=== PATIENT | female | born 1950 | race Caucasian/White ===

== ENCOUNTER 2017-01-21 16:07 | Day surgery (SDC) | payer OTHER, BC ==
[~2017-01-21] VITALS: Ht 160 cm; Wt 73.9 kg
[2017-01-21 10:25] VITALS: BP 169/74
[~2017-01-21 16:07] MED LIST: AMBIEN5 MG PO; APRESOLINE50 MG PO; CLONIDINE HCL0.2 MG PO; DIABETA1.25 MG PO; NORVASC5 MG PO; SYNTHROID25 MCG PO
[2017-01-21 16:48] LABS: BASOPHIL COUNT 0.1 K/uL (0-0.1); EOSINOPHIL (%) 0.6 % (0-5); EOSINOPHIL COUNT 0.1 K/uL (0-0.3); IMMATURE GRANULOCYTE (%) 1.5 % (0.0-0.7); IMMATURE GRANULOCYTE COUNT 0.2 K/uL; INSTRUMENT ABS NEUTROPHIL CT 9.2 K/uL; LYMPHOCYTE COUNT 1.7 K/uL (1.0-2.8); MCH 30.7 PG (29.0-34.0); MCHC 32.3 G/DL (30.0-36.0); MCV 95.1 FL (83-99); MONOCYTE (%) 9.7 % (3-12); MONOCYTE COUNT 1.2 K/uL (0-0.8); NEUTROPHIL (%) 74.1 % (45-76); NEUTROPHIL COUNT 9.2 K/uL (1.8-6.4); PLATELET COUNT 289 K/uL (156-360); RBC DIS.WIDTH-CV 12.9 % (11.8-14.6); RBC DIS.WIDTH-SD 44.5 % (39-53); WHITE BLOOD COUNT 12.5 K/uL (4.1-10.2)
[2017-01-21] MEDS ORDERED: TYLENOL ARTHRI650 MG PO (16:51)
[2017-01-21] MEDS ORDERED: CLARITIN,ALAVAR10 MG PO (16:55)
[2017-01-21 17:00] VITALS: BP 183/75
[2017-01-21 17:04] LABS: ANION GAP 16 MEQ/L (2-14); CHLORIDE 93 MEQ/L (99-109); POTASSIUM 4.6 MEQ/L (3.7-5.4); SAMPLE HEMOLYSIS CHECK 0; SAMPLE ICTERIC CHECK 0; SAMPLE LIPEMIA CHECK 0; SODIUM 128 MEQ/L (136-147)
[2017-01-21] MEDS ORDERED: RENVELA800 MG PO (17:09)
[2017-01-21 17:10] LABS: GFR ESTIMATE (CALCULATED) 10 mL/min/; GLUCOSE 142 mg/dL (70-99); UREA NITROGEN (BUN) 91 mg/dL (9-23)
[2017-01-21] MEDS ORDERED: LORTAB 5-325 M1 EACH PO (17:11)
[2017-01-21 19:07] VITALS: BP 169/91
[2017-01-21 21:51] LABS: POINT-OF-CARE METER ID UU13113675
[2017-01-22 04:05] VITALS: BP 144/66
[2017-01-22 08:00] VITALS: BP 140/63
== END 2017-01-22 13:10 | disposition home or self-care (01) ==
LOC: SDC 16:07 → 2SOUTH 20:54 → 2EAST 21:58
PROVIDERS: Surgery
DX: T82.868A Thrombosis due to vascular prosthetic devices, implants and grafts, initial encounter (principal); T82.858A Stenosis of other vascular prosthetic devices, implants and grafts, initial encounter; Y83.2 Surgical operation with anastomosis, bypass or graft as the cause of abnormal reaction of the patient, or of later complication, without mention of misadventure at the time of the procedure; I12.0 Hypertensive chronic kidney disease with stage 5 chronic kidney disease or end stage renal disease; N18.6 End stage renal disease; E11.22 Type 2 diabetes mellitus with diabetic chronic kidney disease; Z99.2 Dependence on renal dialysis; E03.9 Hypothyroidism, unspecified; Z79.84 Long term (current) use of oral hypoglycemic drugs; Z91.041 Radiographic dye allergy status; Z88.0 Allergy status to penicillin; Z88.8 Allergy status to other drugs, medicaments and biological substances
CPT/HCPCS: 80048; 82948; 85014; 85018; 85025; 93005; C1757; C1769; C1894; C2628; G0378; J0690; J1644; J3010

== ENCOUNTER 2017-08-07 07:35 | Day surgery (SDC) | payer OTHER, BC ==
[~2017-08-07] VITALS: Ht 160 cm; Wt 72.0 kg
[~2017-08-07 07:35] MED LIST changes: +AMARYL1 MG PO; +ASPIR 8181 M1 PO; +CLARITIN,ALAVAR10 MG PO; +COLACE100 MG PO; +COQ-10100 MG PO; +HYALURONIC ACI1 EACH PO; +LEVO-T75 MCG PO; +LORTAB 5-325 M1 EACH PO; +MELATIN3 MG PO; +NEPHRO-VITE,1 TABLET PO; +NORCO 10/3251 TABLET PO; +RENVELA800 MG PO; +TYLENOL ARTHRI650 MG PO; +VITAMIN D35000 UNIT PO
[2017-08-07 08:28] LABS: HEMATOCRIT 27.3 % (36.0-46.0); MCH 31.2 PG (29.0-34.0); MCHC 32.6 G/DL (30.0-36.0); MCV 95.8 FL (83-99); MEAN PLAT.VOLUME 9.5 uM^3 (9.5-12.4); PLATELET COUNT 195 K/uL (156-360); RBC DIS.WIDTH-CV 14.3 % (11.8-14.6); RBC DIS.WIDTH-SD 50.2 % (39-53); RED BLOOD COUNT 2.85 M/uL (3.80-5.20); WHITE BLOOD COUNT 6.3 K/uL (4.1-10.2)
[2017-08-07] MEDS ORDERED: ALPHA LIPOIC A200 M1 PO (08:30)
[2017-08-07] MEDS ORDERED: ASTAXANTHIN4 MG PO (08:31)
[2017-08-07] MEDS ORDERED: ACETYL L-CARNI500 MG PO (08:31)
[2017-08-07] MEDS ORDERED: BALANCE B-1001 EAC1 PO (08:32)
[2017-08-07] MEDS ORDERED: TUMERIC (08:34)
[2017-08-07] MEDS ORDERED: COD LIVER OIL (08:34)
[2017-08-07] MEDS ORDERED: FLAX SEED OIL1 EACH PO (08:34)
[2017-08-07] MEDS ORDERED: ASHWAGANDHA (08:34)
[2017-08-07] MEDS ORDERED: [UNRECOGNIZED DRUG - OTHER] (08:35)
[2017-08-07] MEDS ORDERED: [UNRECOGNIZED DRUG - OTHER] (08:35)
[2017-08-07] MEDS ORDERED: [UNRECOGNIZED DRUG - OTHER] (08:35)
[2017-08-07] MEDS ORDERED: BENADRYL25 MG PO (08:36)
[2017-08-07 08:37] VITALS: BP 164/74
[2017-08-07 09:02] LABS: ANION GAP 16 MEQ/L (2-14); CHLORIDE 104 MEQ/L (99-109); GFR ESTIMATE (CALCULATED) 9 mL/min/; GLUCOSE 147 mg/dL (70-99); POTASSIUM 4.3 MEQ/L (3.7-5.4); SAMPLE HEMOLYSIS CHECK 0; SAMPLE ICTERIC CHECK 0; SAMPLE LIPEMIA CHECK 0; SODIUM 135 MEQ/L (136-147); UREA NITROGEN (BUN) 79 mg/dL (9-23)
[2017-08-07 09:29] LABS: METH RESISTANT S AUREUS PCR NEGATIVE (NEGATIVE)
[2017-08-07 09:35] LABS: PROBE CHECK PASS; SPECIMEN PROCESSING CONTROL PASS
[2017-08-07] MEDS ORDERED: NORCO 5/3251 TABLET PO (13:16)
[2017-08-07 13:19] LABS: POINT-OF-CARE METER ID UU13113675
[2017-08-07 14:13] VITALS: BP 167/71
[2017-08-07 14:49] VITALS: BP 147/65
== END 2017-08-07 15:01 | disposition home or self-care (01) ==
LOC: SDC 07:35
PROVIDERS: Physician Assistant; Surgery
DX: T82.858A Stenosis of other vascular prosthetic devices, implants and grafts, initial encounter (principal); I13.0 Hypertensive heart and chronic kidney disease with heart failure and stage 1 through stage 4 chronic kidney disease, or unspecified chronic kidney disease; E11.22 Type 2 diabetes mellitus with diabetic chronic kidney disease; N18.9 Chronic kidney disease, unspecified; I50.9 Heart failure, unspecified; Z79.84 Long term (current) use of oral hypoglycemic drugs; E03.9 Hypothyroidism, unspecified; D63.1 Anemia in chronic kidney disease
CPT/HCPCS: 80048; 82948; 85027; 87641; C1725; C1757; C1768; C1769; C1894; C2628; J0131; J1200; J1644; J1720; J2250; J2405; J2720; J3010

== ENCOUNTER 2018-02-27 08:16 | Day surgery (SDC) | payer OTHER, BC ==
[~2018-02-27] VITALS: Ht 160 cm; Wt 61.0 kg
[~2018-02-27 08:16] MED LIST changes: +ACETYL L-CARNI500 MG PO; +ALPHA LIPOIC A200 M1 PO; +ASHWAGANDHA; +ASTAXANTHIN4 MG PO; +BALANCE B-1001 EAC1 PO; +BENADRYL25 MG PO; +COD LIVER OIL; +COD LIVER OIL1 EACH PO; +FLAX SEED OIL1 EACH PO; +LABETALOL HCL200 MG PO; +NORCO 5/3251 TABLET PO; +RENA-VITE RX T1 EACH PO; +TUMERIC; +TURMERIC500 M2 PO; +[UNRECOGNIZED DRUG - OTHER]; +[UNRECOGNIZED DRUG - OTHER]; +[UNRECOGNIZED DRUG - OTHER]
== END 2018-02-27 12:40 | disposition home or self-care (01) ==
LOC: CATH 08:16
PROVIDERS: Surgery
PROC: 05HY33Z Insertion of Infusion Device into Upper Vein, Percutaneous Approach (ICD-10-PCS; principal; 2018-02-27)
DX: I12.0 Hypertensive chronic kidney disease with stage 5 chronic kidney disease or end stage renal disease (principal); E11.22 Type 2 diabetes mellitus with diabetic chronic kidney disease; N18.6 End stage renal disease; Z99.2 Dependence on renal dialysis; Z87.891 Personal history of nicotine dependence; Z88.0 Allergy status to penicillin
CPT/HCPCS: 82948; 87641; C1750; J0690; J1200; J1644; J2250; J3010; S0020

== ENCOUNTER 2018-04-02 10:12 | Day surgery (SDC) | payer OTHER, BC ==
[~2018-04-02] VITALS: Ht 160 cm; Wt 61.0 kg
[~2018-04-02 10:12] MED LIST changes: +HYDROCODON-ACE1 EAC7 PO; +KEFLEX500 MG PO; +RENVELA0.8 GM PO
[2018-04-02 11:03] LABS: HEMATOCRIT 26.8 % (36.0-46.0); HEMOGLOBIN 7.9 G/DL (11.9-15.5); MCH 25.6 PG (29.0-34.0); MCHC 29.5 G/DL (30.0-36.0); PLATELET COUNT 273 K/uL (156-360); RBC DIS.WIDTH-SD 50.5 % (39-53); RED BLOOD COUNT 3.08 M/uL (3.80-5.20); WHITE BLOOD COUNT 7.5 K/uL (4.1-10.2)
[2018-04-02 11:23] VITALS: BP 215/93
[2018-04-02 11:39] LABS: CHLORIDE 103 MEQ/L (99-109); CREATININE 3.9 MG/DL (0.6-1.3); GFR ESTIMATE (CALCULATED) 12 mL/min/; GLUCOSE 93 mg/dL (70-99); POTASSIUM 4.9 MEQ/L (3.7-5.4); SODIUM 138 MEQ/L (136-147); UREA NITROGEN (BUN) 56 mg/dL (9-23)
[2018-04-02 19:38] VITALS: BP 182/74
[2018-04-02 20:51] VITALS: BP 114/63
== END 2018-04-02 21:08 | disposition home or self-care (01) ==
LOC: SDC 10:12
PROVIDERS: Surgery
PROC: 3E03317 Introduction of Other Thrombolytic into Peripheral Vein, Percutaneous Approach (ICD-10-PCS; principal; 2018-04-02)
PROC: 031709D Bypass Right Brachial Artery to Upper Arm Vein with Autologous Venous Tissue, Open Approach (ICD-10-PCS; principal; 2018-04-02)
PROC: 05BD0ZZ Excision of Right Cephalic Vein, Open Approach (ICD-10-PCS; principal; 2018-04-02)
DX: T82.898A Other specified complication of vascular prosthetic devices, implants and grafts, initial encounter (principal); I12.0 Hypertensive chronic kidney disease with stage 5 chronic kidney disease or end stage renal disease; E11.22 Type 2 diabetes mellitus with diabetic chronic kidney disease; N18.6 End stage renal disease; Z99.2 Dependence on renal dialysis; Z87.891 Personal history of nicotine dependence
CPT/HCPCS: 80048; 82948; 85027; 86850; 86860; 86870; 86880; 86900; 86901; 86905; 86920; 87641; 93005; J0360; J1200; J1644; J2250; J2720; J3010; S0020